=== PATIENT | female | born 1970 | race African-American/Black ===

== ENCOUNTER 2017-05-22 18:44 | Observation (INO) | payer OTHER ==
--- OUTSIDE RECORDS SUMMARY | 2017-05-22 18:47 | XMS | Clinical Summary ---
:1970 Author Organization [facility] Address [address] [place] [address] Phone Care Team Providers Name Role Phone , Primary Care Provider Unavailable Allergies Not on File Current Medications Not on file Active Problems Not on file Social History Tobacco Use Types Packs/Day Years Used Date Never Assessed Sex Assigned at Date Recorded Not on file Last Filed Vital Signs Not on file Plan of Treatment Not on file Results Not on filefrom Last 3 Months
[2017-05-22 19:34] LABS: #Basophils 0.1 thou/uL (0.0-0.2); #Eosinphils 0.1 thou/uL (0.0-0.7); #Lymphocytes 2.8 thou/uL (1.20-3.40); #Monocytes 0.9 thou/uL (0.11-0.59); #Neutrophils 7.4 thou/uL (1.40-6.50); %Basophils 0.7 % (0.0-1.0); %Eosinophils 0.6 % (0.0-10.0); %Lymphocytes 24.8 % (21.0-51.0); %Monocytes 7.6 % (0.0-10.0); Mean Platelet Volume 7.4 fL (7.4-10.4); Red Blood Cell (RBC) Count 4.73 mill/uL (4.20-5.40); White Blood Cell (WBC) Count 11.2 thou/uL (4.8-10.8)
[2017-05-22] MEDS ORDERED: Nitroglycerin 2% Ointment 1 INCH/1 GM Packet ONE (19:35)
[2017-05-22 20:00] LABS: ALT (SGPT) 43 U/L (8-55); AST (SGOT) 66 U/L (5-34); Alkaline Phosphatase 76 U/L (40-150); Anion Gap 10 mmol/L (10-20); BUN (Urea Nitrogen) 7 mg/dL (7.0-18.7); Bilirubin, Total 0.5 mg/dL (0.2-1.2); CK (CPK) 1600 U/L (29-168); Calc. Creatinine Clearance 0 mL/min (70-130); Calcium 10.2 mg/dL (7.8-10.44); Carbon Dioxide 30 mmol/L (22-29); Chloride 104 mmol/L (98-107); Estimated GFR-MDRD Greater than 90; Globulin 2.6 g/dL (2.4-3.5); Lipase 11 U/L (8-78); Protein, Total 6.5 g/dL (6.0-8.3)
[2017-05-22 20:03] LABS: Troponin I 0.012 ng/mL (< 0.028)
--- NOTE | 2017-05-22 20:23 | RAD ---
UPRIGHT PORTABLE CHEST ONE VIEW: 05/22/17 HISTORY: 47-year-old female with chest pain. COMPARISON: 01/19/14. Monitor leads overlie the chest. Heart size is borderline. No confluent pneumonia, overt edema or pl eural effusion. IMPRESSION: Borderline sized heart. No acute process. Stable from prior study. POS: [facility]
[2017-05-22] MEDS ORDERED: Acetaminophen 500 MG TAB ONE (20:37)
[2017-05-22] MEDS ORDERED: Ondansetron HCl/PF 4 MG/2 ML Vial IVP PRN (22:25)
[2017-05-22] MEDS ORDERED: Ondansetron ODT 4 MG TAB SL PRN (22:25)
[2017-05-22] MEDS ORDERED: Acetaminophen 325 MG TAB PO PRN (22:25)
[2017-05-22] MEDS ORDERED: Nitroglycerin 2% Ointment 1 INCH/1 GM Packet TOP SCH (22:30)
[2017-05-22 22:32] VITALS: BMI 43.4
[2017-05-22 22:38] LABS: Troponin I Less than 0.010 ng/mL (< 0.028)
[2017-05-22] MEDS ORDERED: Aspirin 325 MG TAB PO SCH (23:00)
[2017-05-22] MEDS: Sodium Chloride 0.9% 1,000 ML IV SCH (23:15)
[2017-05-23 02:01] LABS: Troponin I 0.017 ng/mL (< 0.028)
[2017-05-23] MEDS ORDERED: traMADol HCl 50 MG TAB PO PRN (03:30)
[2017-05-23] MEDS ORDERED: Ondansetron ODT 4 MG TAB PO PRN ×2 (05:45)
[2017-05-23] MEDS ORDERED: Ondansetron HCl/PF 4 MG/2 ML Vial IVP PRN ×2 (05:45)
[2017-05-23] MEDS ORDERED: Lorazepam 1 MG TAB PO PRN (05:45)
[2017-05-23] MEDS ORDERED: Acetaminophen 325 MG TAB PO PRN (05:45)
[2017-05-23] MEDS: Nitroglycerin 2% Ointment 1 INCH/1 GM Packet TOP SCH ×2 (05:55→13:59)
--- NOTE | 2017-05-23 06:04 | HP ---
PRIMARY CARE PHYSICIAN: Dr. Mer Brown CHIEF COMPLAINT: Chest pain. HISTORY OF PRESENT ILLNESS: Ms. Mackenzie is a pleasant 47-year-old female that has a history of hyper tension and asthma. She also has a history of major depression and history of substance abuse in e past. She says that she was in her usual state of health until yesterday when she had a disagreem ent with a friend of hers and this caused her to become upset. She says that following that she rachel nk some alcohol because she thought this would make her feel better and she says that once she drank the beer it triggered her desire to smoke some cocaine. She says she had not used any cocaine in 6 months, but relapsed. She says that she got drunk and used some cocaine and was up all night and t hen finally fell asleep. She says that when she awoke from sleep she had a headache, felt nauseated and had a pressure-like sensation in her chest and could barely breathe. This alarmed her and she came to the emergency room for evaluation. In the ER, she was found to have an elevated CK. Howeve r, her troponin was negative and she is being placed in observation for further evaluation. Now, sh e says she only has just a very slight amount of pain and otherwise no other complaints. No nausea, no vomiting, no leg pain, etc. REVIEW OF SYSTEMS: CONSTITUTIONAL: There have been no fevers, chills, no night sweats, no weight loss. HEENT: No headaches, no dizziness, no visual changes, no sore throat, rhinorrhea, neck pain, no bárbara nopathy. PULMONARY: No hemoptysis, no cough, no wheezing. CARDIOVASCULAR: As the history of present illness. GASTROINTESTINAL: No abdominal pain, no nausea, no vomiting, no change in bowels. GENITOURINARY: No urinary frequency, hematuria, no hesitancy. NEUROLOGIC: No focal weakness, numbness, no seizures. PSYCHIATRIC: No symptoms of anxiety or depression. SKIN AND INTEGUMENT: No skin changes. No rash. PAST MEDICAL HISTORY: Significant for hypertension, asthma, osteoarthritis, and depression. PAST SURGICAL HISTORY: She has had right foot surgery from a spider bite, , cholecystectom y and 2 miscarriages that required surgical intervention. ALLERGIES: LISINOPRIL and NICOTINE. SOCIAL HISTORY: She is single, has 8 children. She smokes a half a pack of cigarettes daily for 30 years, occasionally drinks. FAMILY HISTORY: Significant for cancer in her father, colon cancer and lung cancer in her mother. MEDICATIONS: She says include hydrochlorothiazide 25 mg daily, ranitidine 150 mg daily, Zoloft 100 mg daily, tramadol 50 mg t.i.d., trazodone 100 mg at bedtime, Breo Ellipta 1 puff daily, Dexilant 60 mg daily, Bupropion XL 150 mg daily, and amlodipine 2.5 mg daily. PHYSICAL EXAMINATION: GENERAL: She is alert and oriented. She appears to be in no acute distress. VITAL SIGNS: Blood pressure was 130/83, heart rate 79, respiratory rate is 16, temperature is 98.5. HEENT: Her pupils are equal, round, and reactive. Extraocular muscles are intact. Her sclerae are anicteric. Throat no erythema, no exudates. NECK: No adenopathy, no bruits. LUNGS: Clear. There is no wheezing, no rales. CARDIOVASCULAR: She has a normal S1, S2. I did not appreciate an S3 or S4. No murmurs, clicks or rubs. ABDOMEN: Soft, it is nontender, nondistended. Positive for bowel sounds. No rebound, no guarding. EXTREMITIES: There is no edema. NEUROLOGICALLY: The exam is nonfocal. LABORATORY AND X-RAY FINDINGS: On her EKG, it is sinus rhythm, the rate is 89. She had some nonspe cific ST wave changes with some T-wave inversions in 3, as well as leads V1, V2, V3 and V4. ASSESSMENT AND PLAN: This is a 47-year-old female who presents to the emergency room with chest geneva n radiating down her left arm. It is associated with some shortness of breath. The patient admits to drinking quite a bit of alcohol and getting drunk and also using some cocaine and she said she sm oked this cocaine prior to her symptoms starting. Likely it is related to the substance abuse, but she is at risk of having underlying coronary artery disease as well. She will be monitored in telem etry. We will place her on aspirin and nitrates, avoid beta blockers given the cocaine use and get a nuclear stress test to further stratify her risks for coronary artery disease. She was counseled briefly on substance abuse. She says that she sees a psychiatrist for her depression and I encourag ed her to discuss her relapse with her psychiatrist and possible healthier coping mechanisms.
[2017-05-23 06:53] LABS: Amphetamine Not Detected (NotDetected); Methadone Not Detected (NotDetected); Methamphetamine Not Detected (NotDetected)
[2017-05-23] MEDS: Sodium Chloride 0.9% 1,000 ML IV SCH ×3 (08:36→17:21)
[2017-05-23] MEDS ORDERED: Sodium Chloride 0.9% 1,000 ML IV SCH (09:00)
[2017-05-23] MEDS ORDERED: Docusate 100 MG CAP PO SCH (09:00)
[2017-05-23] MEDS ORDERED: Enoxaparin Sodium 40 MG/0.4 ML SYRINGE SC SCH (09:00)
[2017-05-23] MEDS ORDERED: Non-Formulary Item 1 EACH (Dexlansoprazole [Dexilant] 60 MG) PO SCH (09:00)
[2017-05-23] MEDS ORDERED: FLU VACC QS2017-18 36 mo. & older 0.5 ML SYRINGE IM ONE (09:00)
[2017-05-23] MEDS ORDERED: Non-Formulary Item 1 EACH (Ranitidine Hcl [Ranitidine Hcl] 150 MG) PO SCH (09:00)
[2017-05-23] MEDS ORDERED: Non-Formulary Item 1 EACH (Fluticasone/Vilanterol [Breo Ellipta] 1 PUFF) INH SCH (09:00)
[2017-05-23] MEDS ORDERED: Aspirin 325 MG TAB PO SCH (09:00)
[2017-05-23] MEDS ORDERED: Famotidine 20 MG TAB PO SCH (09:30)
[2017-05-23] MEDS ORDERED: Bupropion 150 MG XL TAB PO SCH (09:30)
[2017-05-23 09:41] LABS: CK (CPK) 1256 U/L (29-168); Magnesium 2.3 mg/dL (1.6-2.6)
[2017-05-23] MEDS ORDERED: Regadenoson 0.4 MG/5 ML SYRINGE ONE (12:00)
[2017-05-23] MEDS ORDERED: Potassium Chloride 20 MEQ TAB PO SCH (12:45)
--- NOTE | 2017-05-23 13:10 | NM ---
RADIONUCLIDE STRESS ONLY MYOCARDIAL PERFUSION SCAN WITH CT ATTENUATION CORRECTION AND SPECT IMAGING LEFT VENTRICULAR WALL MOTION EVALUATION AND EJECTION FRACTION: HISTORY: Chest pain. RADIONUCLIDE STRESS/REST MYOCARDIAL PERFUSION SCAN, 09/16/12: RADIOPHARMACEUTICAL: 33.0 mCi Technetium 99m sestamibi for stress exam; 11.0 mCi Technetium 99m sestamibi for rest exam. FINDINGS: There is heterogeneous uptake of radiotracer throughout the left ventricular myocardium. No focal p erfusion defect is evident. QGS analysis of gated SPECT images shows no focal wall motion abnormalities. Left ventricular eject ion fraction is calculated at 79%. LexiScan protocol was used. IMPRESSION: Normal stress-only myocardial perfusion scan. Normal left ventricular ejection fraction. POS: [facility]
--- NOTE | 2017-05-23 13:51 | PDOC.EVN ---
Event Note - Event Note Event Note: Pt seen and examined. admitted earlier today for chest pain,HTN,Rhabdomyolysis after abusing cocaine. Chart and labs reviewed. feels better.No more chest pain. labs reviewed. CPK improving. NM stress test without any ischemia .NL EF. plan-Will increase IVf for now and recheck CPK at 1700hrs. If still trending down, will DC home . encourage hydration and cocaine/alcohal abstinence.
[2017-05-23 15:45] VITALS: BP 144/80; TEMP 98.7
[2017-05-23] MEDS ORDERED: Mometasone/Formoterol 120 PUFF INHALER INH SCH (18:30)
[2017-05-23] MEDS ORDERED: traZODone HCl 50 MG TAB PO SCH (21:00)
[2017-05-23] MEDS ORDERED: Non-Formulary Item 1 EACH (Trazodone [Trazodone] 100 MG) PO SCH (21:00)
--- NOTE | 2017-05-24 02:12 | DIS ---
DATE OF ADMISSION: 05/22/2017 DATE OF DISCHARGE: 05/23/2017 PRIMARY CARE PHYSICIAN: Mer Brown D.O. CONDITION AT THE TIME OF DISCHARGE: Stable and improved. DISCHARGE DIAGNOSES: 1. Cocaine abuse. 2. Chest pain secondary to cocaine abuse. 3. Rhabdomyolysis. 4. History of essential hypertension. 5. History of asthma. 6. Osteoarthritis. 7. Depression. DISCHARGE MEDICATIONS: Remain the same as admission medication. Please see admission history and p [facility] for the complete list. PROCEDURES DONE IN THE HOSPITAL: Nuclear medicine stress test, which is negative for any reversible or fixed ischemia and the estimated ejection fraction is 79%. ADMISSION HISTORY: Ms. Mackenzie is a 47-year-old -O[place] female with history of hypertension and cocaine abuse and depression, who presented to the ER with complaints of chest pain. She had c ardiac workup done initially in the ER, which was negative including negative troponin and EKG. She did have elevated CPK at 1600 and was admitted with a presumptive diagnosis of rhabdomyolysis and A CS rule out. HOSPITAL COURSE: The patient underwent cardiac stress testing to rule out acute coronary syndrome a nd it is negative for the same. Her cardiac biomarkers remained negative. Her CK trended down from 1600-950. Rest of her hospitalization was unremarkable. She had low potassium, which was suppleme nted prior to discharge. The patient is instructed to stay hydrated over the course of next few days and follow up with her [facility] physician with outpatient recheck of her CPK. She was also counseled extensively about cocaine abstinence and alcohol abstinence. At this time, she verbalized understanding. She was see n and examined prior to discharge. PHYSICAL EXAMINATION: VITAL SIGNS: Temperature 98.7, pulse of 83, respirations 24, saturating 99% on room air, blood pres sure 144/80. GENERAL: No acute distress, awake, alert, oriented x3. CHEST: Clear to auscultation without any wheezing, rales or rhonchi. Rate and rhythm is regular wi thout any murmur, rubs or gallops. ABDOMEN: Soft, nontender, nondistended with positive bowel sounds. LABORATORY DATA: Troponin less than 0.010, then 0.017. CK 1600, trending down to 950. Potassium u lizette presentation was 3.3. Lipid panel showed total cholesterol of 178, triglycerides 200, lipase is normal, CBC showed WBCs at 11. Urine toxicology screen positive for cocaine. Chest x-ray upon pre sentation had no effusion, edema or infiltrate. The patient will be discharged back home in a stable condition. She is currently hemodynamically st able and asymptomatic.
[2017-05-24] MEDS ORDERED: Famotidine 20 MG TAB PO SCH (09:00)
[2017-05-24] MEDS ORDERED: Bupropion 150 MG XL TAB PO SCH (09:00)
== END 2017-05-23 19:45 | disposition home or self-care (01) ==
LOC: ERS 18:44 → 2SW 20:53
PROVIDERS: ADMIT Internal Medicine Infectious Disease; ATTEND Internal Medicine Infectious Disease
DX: F14.188 Cocaine abuse with other cocaine-induced disorder (principal); R07.9 Chest pain, unspecified; M62.82 Rhabdomyolysis; I10 Essential (primary) hypertension; J45.909 Unspecified asthma, uncomplicated; M19.90 Unspecified osteoarthritis, unspecified site; F32.9 Major depressive disorder, single episode, unspecified; R74.8 Abnormal levels of other serum enzymes; F17.210 Nicotine dependence, cigarettes, uncomplicated; Z79.51 Long term (current) use of inhaled steroids; Z79.899 Other long term (current) drug therapy; Z88.8 Allergy status to other drugs, medicaments and biological substances; Z90.49 Acquired absence of other specified parts of digestive tract; Z98.890 Other specified postprocedural states; Z80.0 Family history of malignant neoplasm of digestive organs; Z80.1 Family history of malignant neoplasm of trachea, bronchus and lung
CPT/HCPCS: 36415; 71010; 78452; 80053; 80061; 80306; 82550; 82553; 83690; 83735; 84132; 84484; 85025; 90471; 90682; 90732; 93005; 93017; 94664; 96360; 96361; 96372; A9500; G0008; G0009; G0378; J1650; J2785; Q2036

== ENCOUNTER 2017-09-21 16:52 | Emergency (ER) | payer OTHER ==
[~2017-09-21 16:52] MED LIST: ISOVUE-370 76%-LOCM 1 ML ONE
[2017-09-21 17:44] LABS: #Eosinphils 0.2 thou/uL (0.0-0.7); #Lymphocytes 2.2 thou/uL (1.20-3.40); #Monocytes 0.5 thou/uL (0.11-0.59); #Neutrophils 4.9 thou/uL (1.40-6.50); %Lymphocytes 28.5 % (21.0-51.0); %Monocytes 5.9 % (0.0-10.0); %Neutrophils 63.6 % (42.0-75.0); Hemoglobin 14.7 g/dL (12.0-16.0); Mean Corpuscular HGB CONC 35.6 g/dL (32.0-36.0); Mean Corpuscular Hemoglobin 31.3 pg (27.0-31.0); Mean Corpuscular Volume 87.8 fl (81.0-99.0); Mean Platelet Volume 7.5 fL (7.4-10.4); Platelet Count 270 thou/uL (130-400); RBC Distribution Width 12.3 % (11.5-14.5); Red Blood Cell (RBC) Count 4.69 mill/uL (4.20-5.40); White Blood Cell (WBC) Count 7.7 thou/uL (4.8-10.8)
[2017-09-21] MEDS ORDERED: traMADol HCl 50 MG TAB ONE (17:47)
[2017-09-21 18:05] LABS: ALT (SGPT) 18 U/L (8-55); AST (SGOT) 17 U/L (5-34); Albumin 3.9 g/dL (3.5-5.0); Alkaline Phosphatase 91 U/L (40-150); Anion Gap 12 mmol/L (10-20); BUN (Urea Nitrogen) 7 mg/dL (7.0-18.7); Bilirubin, Total 0.2 mg/dL (0.2-1.2); Calc. Creatinine Clearance 0 mL/min (70-130); Calcium 9.8 mg/dL (7.8-10.44); Carbon Dioxide 28 mmol/L (22-29); Chloride 102 mmol/L (98-107); Estimated GFR-MDRD Greater than 90; Globulin 2.6 g/dL (2.4-3.5); Glucose 127 mg/dL (70-105); Lipase 27 U/L (8-78); Potassium 3.3 mmol/L (3.5-5.1); Protein, Total 6.5 g/dL (6.0-8.3); Sodium 139 mmol/L (136-145)
[2017-09-21 18:10] LABS: Bilirubin Negative (Negative); Blood, Urine Negative (Negative); Clarity CLEAR (Clear); Glucose, Urine (Dipstick) Negative (Negative); Leukocyte Negative (Negative); Nitrite Negative (Negative); Protein, Urine (Dipstick) Negative (Neg-Trace); Specific Gravity, Urine 1.011 (1.002-1.036); Urobilinogen 0.2 mg/dL (0.2-1.0); pH, Urine 6.5 (5.0-9.0)
--- NOTE | 2017-09-21 18:33 | CT ---
CT OF THE ABDOMEN AND PELVIS WITH CONTRAST 09/21/17 COMPARISON: 09/09/17 HISTORY: Right sided abdominal pain for one week and dizziness. TECHNIQUE: Multiple contiguous axial images were obtained in a CT of the abdomen and pelvis with contrast. Coron al reformats were performed. FINDINGS: The patient is status post cholecystectomy. The liver, kidneys, adrenal glands, spleen, and pancreas are unremarkable. No free air, free fluid or stranding changes are seen in the abdomen or pelvis. The uterus is prominent along the fundus which could be secondary to the fundal fibroid. The large an d small bowel are unremarkable. The appendix is unremarkable. No abdominal or pelvic lymphadenopathy are seen. The osseous structures, visualized inferior thorax are unremarkable. There is a 2.8 cm fat containing umbilical hernia which remains stable. IMPRESSION: 1. No evidence of acute intra-abdominal/pelvic abnormality. 2. Possible uterine fibroid. 3. Stable fat containing umbilical hernia. POS: [facility]
[2017-09-21] MEDS ORDERED: HYDROcodone/Acetaminophen 5/325 mg Tablet ONE (18:59)
[2017-09-21] MEDS ORDERED: Dexamethasone 4 mg/ml Vial ONE (19:45)
[2017-09-21] MEDS ORDERED: Potassium Chloride 20 MEQ TAB ONE (19:45)
== END 2017-09-21 19:55 | disposition home or self-care (01) ==
LOC: ERS 16:52
DX: K42.9 Umbilical hernia without obstruction or gangrene (principal); I10 Essential (primary) hypertension; M19.90 Unspecified osteoarthritis, unspecified site; K21.9 Gastro-esophageal reflux disease without esophagitis; J45.909 Unspecified asthma, uncomplicated; F41.9 Anxiety disorder, unspecified; F32.9 Major depressive disorder, single episode, unspecified; F17.210 Nicotine dependence, cigarettes, uncomplicated
CPT/HCPCS: 36415; 74177; 80053; 81003; 83690; 85025; J1100

== ENCOUNTER 2017-10-23 12:39 | Outpatient (CLI) | payer OTHER ==
[2017-10-23 14:31] LABS: BHCG - Serum Negative (NEGATIVE); Pregs Control Background? CLEAR/WHITE (CLR/WHITE); Pregs Control Bar Appear? YES (CONTROL BAR)
--- NOTE | 2017-10-24 17:43 | EKG ---
Test Reason : Blood Pressure : / mmHG Vent. Rate : 091 BPM Atrial Rate : 091 BPM P-R Int : 178 ms QRS Dur : 082 ms QT Int : 380 ms P-R-T Axes : 057 074 003 degrees QTc Int : 467 ms Normal sinus rhythm Low voltage QRS Nonspecific T wave abnormality Prolonged QT Abnormal ECG Confirmed by DR. Norm DIMAS ([id number]) on 10/24/2017 5:42:48 PM Referred By: KYLE Confirmed By:DR. Norm DIMAS
== END 2017-10-23 12:40 | disposition home or self-care (01) ==
LOC: LABBT 12:39
PROVIDERS: ATTEND Specialist
DX: Z01.810 Encounter for preprocedural cardiovascular examination (principal); K42.9 Umbilical hernia without obstruction or gangrene; D17.1 Benign lipomatous neoplasm of skin and subcutaneous tissue of trunk
CPT/HCPCS: 84703; 93005; 93010

== ENCOUNTER 2017-10-25 07:32 | Day surgery (SDC) | payer OTHER ==
--- NOTE | 2017-10-18 11:31 | HP ---
HISTORY OF PRESENT ILLNESS: Monica Mackenzie is a 47-year-old morbidly obese white female, 224 pound s, 59 inches, 44 BMI presents with a painful incarcerated umbilical hernia and a lipoma, 3 cm right upper quadrant that is bothersome to her. She recently began having problems in her right flank and has taken anti-inflammatories which helps. She presented to the emergency room recently with the abo ve complaints and CAT scan of abdomen and pelvis was obtained and was unremarkable and laboratories, CBC and comp met obtained were unremarkable. I have performed a laparoscopic cholecystectomy in the past. The patient is morbidly obese with teresa rbidities of arthralgias, arthritis, symptoms of sleep apnea, although she has never had a sleep stud y, GERD, she has had chronic cervical spine pain, has had injections for that. She is followed by [facility] and is referred by Dr. Félix Fisher. MEDICATIONS: Hydrochlorothiazide 25 mg a day, tramadol p.r.n. pain, Toradol p.r.n. pain, ranitidine 75 mg twice a day. She takes a bottle of Tums every two days for her reflux, Zoloft 200 mg daily, am lodipine besylate once a day, inhaler 1 puff daily, Breo Ellipta. PAST MEDICAL HISTORY: Cervical spinal stenosis, mild right C3-[address] Proctor with injections 05/07/2012, history of asthma and tobacco use, history of depression, hypertension. STDs treated IM antibiotics, lumbar radiculopathy in the past, Meniere's disease, GERD, takes Zantac twice a da y and takes a bottle of Tums every 2-3 days, rheumatoid arthritis, anxiety, symptoms of sleep apnea, although never having a sleep study. She is single. She lives with her children. They tell her mendoza t she snores and has been respiratory pauses at night, arthralgias, DJD. PAST SURGICAL HISTORY: Cholecystectomy that I performed. Bilateral tubal ligation, x2. C -spine injections right foot, infection from a brown recluse spider bite. ALLERGIES: None. SOCIAL HISTORY: Tobacco 1/2 pack per day. ALCOHOL: None. PHYSICAL EXAMINATION: VITAL SIGNS: Weight 224 pounds, 59 inches, 44 BMI, 147/94, 92, 98 degrees. HEENT: Unremarkable. LUNGS: Clear to auscultation. CARDIAC: Regular rate and rhythm without murmur or gallop. ABDOMEN: Soft, obese, protuberant pannus. Umbilical hernia, incarcerated tender within probably inc arcerated fat, lipoma 3 cm diameter, mobile right upper quadrant beneath the mid clavicular scar from laparoscopic cholecystectomy at least 3 fingerbreadths below that. EXTREMITIES: Unremarkable. No ankle edema. ASSESSMENT AND PLAN: 1. Lipoma, right upper quadrant abdominal wall 3 cm. Plan excision. There is no evidence that this is a hernia, examined standing with Valsalva. 2. Umbilical hernia, incarcerated painful. This probably has incarcerated fat due to her morbid obe sity. We will plan laparoscopic probably transabdominal preperitoneal mesh repair. Risks and benefi ts explained, she consents. 3. Morbid obesity/metabolic syndrome. BMI 44. 4. Symptoms of sleep apnea with a sleep study. 5. Gastroesophageal reflux disease, on H2 blockers and Tums. 6. Arthralgias. 7. Arthritis. 8. Cervical spine chronic pain. 9. Radiculopathy, lumbar history. NOTE: The patient is a good bariatric candidate and with her Medicaid status she will probably need a supervised weight loss. She will attend our bariatric seminar tonight. It was emphasized that she will need tobacco cessation.
[2017-10-23 13:07] VITALS: BMI 44.2
[2017-10-25] MEDS ORDERED: CEFAZOLIN/Water 2 GM/20 ML SYRINGE ONE (07:58)
[2017-10-25] MEDS ORDERED: Ketorolac Tromethamine 30 MG/ML VIAL ONE (07:58)
[2017-10-25] MEDS ORDERED: Bupivacaine/Epinephrine 0.25% 30 ML VIAL ONE ×2 (09:44→10:38)
[2017-10-25] MEDS ORDERED: Fentanyl 250 MCG/5 ML VIAL ONE ×2 (09:45→11:50)
[2017-10-25] MEDS ORDERED: Midazolam HCl 2 mg/2 ml Vial ONE (10:00)
--- NOTE | 2017-10-25 12:07 | OP ---
DATE OF PROCEDURE: 10/25/2017 PREOPERATIVE DIAGNOSES: Umbilical hernia, morbid obesity, lipoma right upper quadrant abdominal wall 2.5 cm defect. Adhesions from prior surgery. POSTOPERATIVE DIAGNOSES: Umbilical hernia, morbid obesity, lipoma right upper quadrant abdominal wal l 2.5 cm defect. Adhesions from prior surgery. PROCEDURE: Laparoscopic adhesiolysis. Omentum adhesed to the anterior abdominal wall (previous C-se ctions) laparoscopic fascial closure using 0 Ethibond GraNee needle. Laparoscopic 11 cm round mesh c losure. Ventralight ST with secure strap and transabdominal fascial fixation 4 quadrant 0 Ethibond. Excision of lipoma, right upper quadrant, right subcostal 3 cm incision 3 cm lipoma. SURGEON: Dr. Aamir Blanchard ANESTHESIA: General. Local 0.25% Marcaine with epinephrine, 60 mL. ESTIMATED BLOOD LOSS: None. BLOOD TRANSFUSED: None. PROCEDURE: The patient was taken to the operating room where under general anesthesia, abdomen was p repared with ChloraPrep, draped in routine fashion. Left lateral subcostal incision made and pneumop eritoneum to 15 mmHg obtained with the Veress needle placed and a 5 port and laparoscope inserted. T here were adhesions around the umbilicus inferiorly from prior surgery. There was an umbilical herni a defect visualized. It was about 2.5 cm in diameter. There was incarcerated omentum. Left lateral mid abdominal incision made and an 11 port placed. Left lower quadrant incision made and a 5 port p laced. Adhesiolysis carried out, taking omentum down from the anterior abdominal wall, freeing the p eriumbilical area. The pneumoperitoneum was reduced to 8 mmHg and a GraNee needle with 0 Ethibond us ed to close the incisional hernia defect with 2 interrupted sutures of 0 Ethibond. Mesh was then rol led and placed against the abdominal wall and a single secure TAC placed over the mesh centrally in t he area of the umbilicus. Pneumoperitoneum had been reduced to 8 mmHg. Mesh was secured circumferen tially with a secure tacking and in 4 quadrants a transabdominal fixation 0 Ethibond GraNee needle. Mesh was taut and had a good position. Good hemostasis noted. Pneumoperitoneum reduced. All instru ments removed and all skin incisions approximated with subdermal 4-0 Monocryl and DermaGlue applied. The patient had a lipoma, right upper quadrant, right subcostal, incisions made 3 cm, carried down de oliveira bcutaneous tissue and lipoma dissected free, submitted to pathology. Hemostasis gained with cautery. Subcutaneous tissues approximated with 3-0 Monocryl, skin with subdermal 4-0 Monocryl and DermaGlue applied.
[2017-10-25] MEDS ORDERED: HYDROcodone/Acetaminophen 5/325 mg Tablet ONE (12:16)
== END 2017-10-25 13:20 | disposition home or self-care (01) ==
LOC: SDC 07:32
PROVIDERS: ATTEND Specialist
PROC: 0WUF4JZ Supplement Abdominal Wall with Synthetic Substitute, Percutaneous Endoscopic Approach (ICD-10-PCS; principal; 2017-10-25)
PROC: 0JB80ZZ Excision of Abdomen Subcutaneous Tissue and Fascia, Open Approach (ICD-10-PCS; principal; 2017-10-25)
DX: D17.1 Benign lipomatous neoplasm of skin and subcutaneous tissue of trunk (principal); K42.9 Umbilical hernia without obstruction or gangrene; K66.0 Peritoneal adhesions (postprocedural) (postinfection); I10 Essential (primary) hypertension; H81.09 Meniere's disease, unspecified ear; K21.9 Gastro-esophageal reflux disease without esophagitis; M06.9 Rheumatoid arthritis, unspecified; J45.909 Unspecified asthma, uncomplicated; M17.11 Unilateral primary osteoarthritis, right knee; E78.00 Pure hypercholesterolemia, unspecified; F32.9 Major depressive disorder, single episode, unspecified; F41.9 Anxiety disorder, unspecified; F17.210 Nicotine dependence, cigarettes, uncomplicated; E66.01 Morbid (severe) obesity due to excess calories; Z68.41 Body mass index [BMI] 40.0-44.9, adult; Z88.8 Allergy status to other drugs, medicaments and biological substances; Z98.890 Other specified postprocedural states; Z98.891 History of uterine scar from previous surgery
CPT/HCPCS: 88304; 96374; C1781; J0131; J1885; J2250; J3010

== ENCOUNTER 2018-08-28 11:20 | Emergency (ER) | payer OTHER ==
--- NOTE | 2018-08-28 14:17 | RAD ---
TWO VIEW CHEST: INDICATION: Cough. FINDINGS: Lung cisneros are clear. No infiltrate. Heart and mediastinum unremarkable. IMPRESSION: No acute findings. POS: [facility]
== END 2018-08-28 14:43 | disposition home or self-care (01) ==
LOC: ERS 11:20
DX: J06.9 Acute upper respiratory infection, unspecified (principal); I10 Essential (primary) hypertension; K21.9 Gastro-esophageal reflux disease without esophagitis; J45.909 Unspecified asthma, uncomplicated; M19.90 Unspecified osteoarthritis, unspecified site; F32.9 Major depressive disorder, single episode, unspecified; F41.9 Anxiety disorder, unspecified; F17.210 Nicotine dependence, cigarettes, uncomplicated; Z79.899 Other long term (current) drug therapy; Z79.891 Long term (current) use of opiate analgesic
CPT/HCPCS: 71046; 87804

== ENCOUNTER 2018-12-15 11:14 | Emergency (ER) | payer OTHER ==
[2018-12-15] MEDS ORDERED: Ketorolac Tromethamine 30 MG/ML VIAL ONE (12:41)
--- NOTE | 2018-12-15 12:48 | RAD ---
XR Chest Pa Lat STANDARD HISTORY: Chest pain, left arm pain COMPARISON: None FINDINGS: The heart size is normal. The lungs are well expanded without focal areas of consolidation, pneumothorax or pleural effusions. There are degenerative changes in the spine. IMPRESSION: No radiographic evidence of acute cardiopulmonary process.
[2018-12-15 13:05] LABS: #Basophils 0.1 thou/uL (0.0-0.2); #Eosinphils 0.2 thou/uL (0.0-0.7); #Lymphocytes 2.1 thou/uL (1.20-3.40); #Monocytes 0.7 thou/uL (0.11-0.59); #Neutrophils 6.3 thou/uL (1.40-6.50); %Basophils 0.8 % (0.0-1.0); %Eosinophils 1.7 % (0.0-10.0); %Lymphocytes 22.4 % (21.0-51.0); %Monocytes 7.7 % (0.0-10.0); %Neutrophils 67.4 % (42.0-75.0); Hemoglobin 16.4 g/dL (12.0-16.0); Mean Corpuscular HGB CONC 34.7 g/dL (32.0-36.0); Mean Corpuscular Hemoglobin 30.6 pg (27.0-31.0); Mean Corpuscular Volume 88.2 fL (78.0-98.0); Platelet Count 309 thou/uL (130-400); RBC Distribution Width 12.1 % (11.5-14.5); Red Blood Cell (RBC) Count 5.38 mill/uL (4.20-5.40); White Blood Cell (WBC) Count 9.3 thou/uL (4.8-10.8)
[2018-12-15 13:26] LABS: ALT (SGPT) 29 U/L (8-55); AST (SGOT) 22 U/L (5-34); Albumin 4.3 g/dL (3.5-5.0); Alkaline Phosphatase 88 U/L (40-150); Anion Gap 9 mmol/L (10-20); BUN (Urea Nitrogen) 9 mg/dL (7.0-18.7); Bilirubin, Total 0.3 mg/dL (0.2-1.2); Calc. Creatinine Clearance 0 mL/min (70-130); Calcium 10.9 mg/dL (7.8-10.44); Carbon Dioxide 30 mmol/L (22-29); Chloride 104 mmol/L (98-107); Estimated GFR-MDRD Greater than 90; Globulin 2.5 g/dL (2.4-3.5); Glucose 83 mg/dL (70-105); Potassium 3.6 mmol/L (3.5-5.1); Protein, Total 6.8 g/dL (6.0-8.3); Sodium 139 mmol/L (136-145)
[2018-12-15 14:01] LABS: Bilirubin Negative (Negative); Blood, Urine Negative (Negative); Clarity CLEAR (Clear); Glucose, Urine (Dipstick) Negative (Negative); Leukocyte Negative (Negative); Nitrite Negative (Negative); Protein, Urine (Dipstick) Negative (Neg-Trace); Specific Gravity, Urine 1.008 (1.002-1.036); Urobilinogen 0.2 mg/dL (0.2-1.0)
== END 2018-12-15 14:09 | disposition home or self-care (01) ==
LOC: ERS 11:14
DX: M79.622 Pain in left upper arm (principal); F19.10 Other psychoactive substance abuse, uncomplicated; M19.90 Unspecified osteoarthritis, unspecified site; K21.9 Gastro-esophageal reflux disease without esophagitis; J45.909 Unspecified asthma, uncomplicated; I10 Essential (primary) hypertension; F41.9 Anxiety disorder, unspecified; F32.9 Major depressive disorder, single episode, unspecified; F17.210 Nicotine dependence, cigarettes, uncomplicated; Z79.891 Long term (current) use of opiate analgesic; Z79.899 Other long term (current) drug therapy
CPT/HCPCS: 71046; 80053; 81003; 84484; 85025; 93005; 96374; J1885

== ENCOUNTER 2020-06-22 18:37 | Emergency (ER) | payer OTHER ==
[2020-06-22 20:02] LABS: Bilirubin Negative (Negative); Blood, Urine Trace (Negative); Glucose, Urine (Dipstick) Negative (Negative); Ketone, Urine Negative (Negative); Leukocyte Negative (Negative); Nitrite Negative (Negative); Protein, Urine (Dipstick) Negative (Neg-Trace); Specific Gravity, Urine 1.025 (1.005-1.030); Urobilinogen 0.2 mg/dL (Less than 2)
[2020-06-22 20:04] LABS: Clarity Clear (Clear)
[2020-06-22] MEDS ORDERED: Morphine 4 MG/ML VIAL ONE (20:36)
[2020-06-22] MEDS ORDERED: Ondansetron PF 4 MG/2 ML Vial ONE (20:37)
[2020-06-22] MEDS ORDERED: Ketorolac Tromethamine 30 MG/ML VIAL ONE (20:37)
[2020-06-22 20:47] LABS: #Basophils 0.1 thou/uL (0.0-0.2); #Eosinphils 0.1 thou/uL (0.0-0.7); #Lymphocytes 2.4 thou/uL (1.20-3.40); #Monocytes 0.5 thou/uL (0.11-0.59); #Neutrophils 4.2 thou/uL (1.40-6.50); %Basophils 0.7 % (0.0-1.0); %Eosinophils 1.4 % (0.0-10.0); %Lymphocytes 33.3 % (21.0-51.0); %Monocytes 6.8 % (0.0-10.0); %Neutrophils 57.9 % (42.0-75.0); Hemoglobin 16.2 g/dL (12.0-16.0); Mean Corpuscular HGB CONC 36.3 g/dL (32.0-36.0); Mean Corpuscular Hemoglobin 32.5 pg (27.0-31.0); Mean Corpuscular Volume 89.7 fL (78.0-98.0); Platelet Count 276 thou/uL (130-400); RBC Distribution Width 12.8 % (11.5-14.5); Red Blood Cell (RBC) Count 4.98 mill/uL (4.20-5.40); White Blood Cell (WBC) Count 7.3 thou/uL (4.8-10.8)
[2020-06-22 21:08] LABS: ALT (SGPT) 13 U/L (8-55); AST (SGOT) 14 U/L (5-34); Alkaline Phosphatase 102 U/L (40-110); Anion Gap 12 mmol/L (10-20); BUN (Urea Nitrogen) 13 mg/dL (7.0-18.7); Bilirubin, Total 0.3 mg/dL (0.2-1.2); Calc. Creatinine Clearance 0 mL/min (70-130); Calcium 10.8 mg/dL (7.8-10.44); Carbon Dioxide 24 mmol/L (22-29); Chloride 108 mmol/L (98-107); Estimated GFR-MDRD 86; Globulin 2.8 g/dL (2.4-3.5); Glucose 96 mg/dL (70-105); Protein, Total 6.8 g/dL (6.0-8.3); Sodium 140 mmol/L (136-145)
[2020-06-22 21:11] LABS: BHCG - Serum Negative (NEGATIVE); Pregs Control Background? CLEAR/WHITE (CLR/WHITE); Pregs Control Bar Appear? YES (CONTROL BAR)
--- NOTE | 2020-06-22 21:33 | CT ---
CT Abdomen Pelvis WO Con 06/22/2020 9:03 PM HISTORY: Right flank pain and hematuria. COMPARISON: 02/01/2020 Technique: Multiple contiguous axial CT images are obtained through the abdomen and pelvis without IV contrast. Coronal reformats are provided. FINDINGS: This examination is limited for the evaluation of solid organs and vascular structures due to the lac k of intravenous contrast. Lower Chest: Lung bases are clear. Liver: Enlarged in craniocaudal dimensions measuring 19.6 cm. This may be attributable to patient bod y habitus. Gallbladder: Surgically absent. Pancreas: Grossly normal nonenhanced CT appearance. Spleen: Grossly normal nonenhanced CT appearance. Adrenals: Mild symmetric thickening of each adrenal gland which is a stable finding. Kidneys, ureters, urinary bladder: An approximately 2 mm nonobstructing superior pole left renal calc ulus is present. No right renal calculus is seen, and there are no ureteral calculi visualized bilaterally. There is no evidence of hydronephrosis. A subcentimeter too small to characterize hypodense lesion is seen in the midportion left kidney whic h is stable in size compared to prior contrasted study on 02/01/2020 and likely represents a small cyst. Incompletely distended but grossly normal in appearance. Reproductive Organs: Uterus is mildly lobulated appearance, this is stable when compared to the prior contrasted CT examination. Lymph Nodes: No enlarged lymph nodes. Bowel: Small to moderate amount of retained fecal material is seen throughout the colon. Loops of sma ll bowel are normal in caliber. Appendix: The appendix is normal in caliber. Peritoneum: No free fluid, free air, or fluid collection. Retroperitoneum: within normal limits. Vessels: Minimal vascular calcifications identified.. Abdominal Wall: within normal limits. Bones: Prominent degenerative changes in the lower thoracic spine also noted on prior study. Bilatera l sacroiliac joint osteoarthritis is present. IMPRESSION: 1. Nonobstructing approximately 2 mm calculus superior pole left kidney. No additional renal or urete ral calculi are seen bilaterally, and there is no hydronephrosis. 2. Left renal cyst. 3. Small to moderate amount of retained fecal material seen throughout the colon. 4. Cholecystectomy.
== END 2020-06-22 22:31 | disposition home or self-care (01) ==
LOC: ERS 18:37
DX: R10.9 Unspecified abdominal pain (principal); K21.9 Gastro-esophageal reflux disease without esophagitis; I10 Essential (primary) hypertension; M19.90 Unspecified osteoarthritis, unspecified site; F32.9 Major depressive disorder, single episode, unspecified; F41.9 Anxiety disorder, unspecified; F17.210 Nicotine dependence, cigarettes, uncomplicated; Z79.899 Other long term (current) drug therapy
CPT/HCPCS: 36415; 74176; 80053; 81003; 84703; 85025; 96374; 96375; J1885; J2270; J2405

== ENCOUNTER 2020-09-24 13:03 | Emergency (ER) | payer OTHER ==
[2020-09-24] MEDS ORDERED: Ketorolac Tromethamine 30 MG/ML VIAL ONE (13:20)
[2020-09-24] MEDS ORDERED: Morphine 4 MG/ML VIAL ONE (13:20)
[2020-09-24 13:46] LABS: #Basophils 0.1 thou/uL (0.0-0.2); #Eosinphils 0.1 thou/uL (0.0-0.7); #Lymphocytes 2.2 thou/uL (1.20-3.40); #Monocytes 0.5 thou/uL (0.11-0.59); #Neutrophils 6.2 thou/uL (1.40-6.50); %Basophils 0.6 % (0.0-1.0); %Eosinophils 1.4 % (0.0-10.0); %Lymphocytes 24.1 % (21.0-51.0); %Monocytes 5.9 % (0.0-10.0); %Neutrophils 68.1 % (42.0-75.0); Hemoglobin 15.9 g/dL (12.0-16.0); Mean Corpuscular HGB CONC 34.4 g/dL (32.0-36.0); Mean Corpuscular Hemoglobin 30.4 pg (27.0-31.0); Mean Corpuscular Volume 88.5 fL (78.0-98.0); Mean Platelet Volume 7.5 fL (7.4-10.4); Platelet Count 252 thou/uL (130-400); RBC Distribution Width 12.8 % (11.5-14.5); Red Blood Cell (RBC) Count 5.22 mill/uL (4.20-5.40); White Blood Cell (WBC) Count 9.1 thou/uL (4.8-10.8)
--- NOTE | 2020-09-24 14:02 | RAD ---
Chest AP view INDICATION: Chest pain COMPARISON: July 26, 2020 FINDINGS: Lungs: The lungs are clear Cardiac silhouette: The cardiomediastinal silhouette appears within normal limits. Pulmonary vasculature: Normal Pleural spaces: No pleural effusion or pneumothorax is demonstrated. Upper abdomen: No abnormality seen. Osseous structures: No acute osseous abnormality. Additional findings: None. IMPRESSION: No acute cardiopulmonary abnormality.
[2020-09-24 14:08] LABS: ALT (SGPT) 16 U/L (8-55); AST (SGOT) 17 U/L (5-34); Albumin 3.8 g/dL (3.5-5.0); Alkaline Phosphatase 77 U/L (40-110); Anion Gap 14 mmol/L (10-20); BUN (Urea Nitrogen) 14 mg/dL (7.0-18.7); Bilirubin, Total 0.2 mg/dL (0.2-1.2); Calc. Creatinine Clearance 0 mL/min (70-130); Carbon Dioxide 26 mmol/L (22-29); Chloride 106 mmol/L (98-107); Globulin 2.3 g/dL (2.4-3.5); Glucose 96 mg/dL (70-105); Potassium 4.5 mmol/L (3.5-5.1); Protein, Total 6.1 g/dL (6.0-8.3); Sodium 141 mmol/L (136-145)
[2020-09-24 17:55] LABS: SARS-CoV-2 PCR by NAA Not Detected (NotDetected)
== END 2020-09-24 16:19 | disposition home or self-care (01) ==
LOC: ERS 13:03
DX: R51.9 Headache, unspecified (principal); R68.83 Chills (without fever); M79.602 Pain in left arm; M79.10 Myalgia, unspecified site; Z20.822 Contact with and (suspected) exposure to COVID-19; I10 Essential (primary) hypertension; K21.9 Gastro-esophageal reflux disease without esophagitis; J45.909 Unspecified asthma, uncomplicated; F17.210 Nicotine dependence, cigarettes, uncomplicated; Z79.899 Other long term (current) drug therapy
CPT/HCPCS: 36415; 71045; 80053; 84484; 85025; 87635; 87804; 93005; 96374; 96375; J1885; J2270; U0003; U0005

== ENCOUNTER 2020-12-05 15:58 | Emergency (ER) | payer OTHER ==
[~2020-12-05 15:58] MED LIST changes: -ISOVUE-370 76%-LOCM 1 ML ONE; +Iopamidol-370 76% 500 ML 1 ML ONE
[2020-12-05 16:56] LABS: #Basophils 0.1 thou/uL (0.0-0.2); #Eosinphils 0.1 thou/uL (0.0-0.7); #Lymphocytes 2.7 thou/uL (1.20-3.40); #Monocytes 0.5 thou/uL (0.11-0.59); %Basophils 0.5 % (0.0-1.0); %Eosinophils 0.9 % (0.0-10.0); %Lymphocytes 25.9 % (21.0-51.0); %Monocytes 5.2 % (0.0-10.0); %Neutrophils 67.4 % (42.0-75.0); Hemoglobin 16.5 g/dL (12.0-16.0); Mean Corpuscular HGB CONC 33.7 g/dL (32.0-36.0); Mean Corpuscular Hemoglobin 30.2 pg (27.0-31.0); Mean Corpuscular Volume 89.6 fL (78.0-98.0); Mean Platelet Volume 6.9 fL (7.4-10.4); Platelet Count 337 thou/uL (130-400); RBC Distribution Width 12.9 % (11.5-14.5); Red Blood Cell (RBC) Count 5.44 mill/uL (4.20-5.40); White Blood Cell (WBC) Count 10.3 thou/uL (4.8-10.8)
[2020-12-05 17:08] LABS: Bilirubin Negative (Negative); Blood, Urine Negative (Negative); Clarity Clear (Clear); Glucose, Urine (Dipstick) Normal (Negative); Ketone, Urine Negative (Negative); Leukocyte Negative Leu/uL (Negative); Nitrite Negative (Negative); Protein, Urine (Dipstick) 10 mg/dL (Neg-Trace); Specific Gravity, Urine 1.024 (1.002-1.036); Urobilinogen Normal mg/dL (Less than 2)
[2020-12-05 17:21] LABS: ALT (SGPT) 15 U/L (8-55); AST (SGOT) 15 U/L (5-34); Albumin 4.4 g/dL (3.5-5.0); Alkaline Phosphatase 117 U/L (40-110); Anion Gap 11 mmol/L (10-20); BUN (Urea Nitrogen) 15 mg/dL (7.0-18.7); Bilirubin, Total 0.5 mg/dL (0.2-1.2); Calc. Creatinine Clearance 0 mL/min (70-130); Calcium 11.5 mg/dL (7.8-10.44); Carbon Dioxide 26 mmol/L (22-29); Chloride 107 mmol/L (98-107); Globulin 3.1 g/dL (2.4-3.5); Glucose 89 mg/dL (70-105); Lipase 32 U/L (8-78); Protein, Total 7.5 g/dL (6.0-8.3); Sodium 140 mmol/L (136-145)
== END 2020-12-05 19:00 | disposition home or self-care (01) ==
LOC: ERS 15:58
DX: R10.13 Epigastric pain (principal); R11.2 Nausea with vomiting, unspecified; R19.7 Diarrhea, unspecified; I10 Essential (primary) hypertension; F17.210 Nicotine dependence, cigarettes, uncomplicated; Z79.899 Other long term (current) drug therapy
CPT/HCPCS: 36415; 74177; 80053; 81003; 83690; 85025; 93005; Q9967

== ENCOUNTER 2023-10-02 17:20 | Emergency (ER) | payer OTHER ==
[2023-10-02 18:27] LABS: #Eosinphils 0.1 thou/uL (0.0-0.7); #Monocytes 0.5 thou/uL (0.11-0.59); #Neutrophils 4.5 thou/uL (1.40-6.50); %Basophils 0.6 % (0.0-1.0); %Eosinophils 1.1 % (0.0-10.0); %Lymphocytes 29.6 % (21.0-51.0); %Monocytes 6.6 % (0.0-10.0); %Neutrophils 61.8 % (42.0-75.0); Hematocrit 46.9 % (36.0-47.0); Hemoglobin 16.3 g/dL (12.0-16.0); Mean Corpuscular HGB CONC 34.8 g/dL (32.0-36.0); Mean Corpuscular Hemoglobin 29.7 pg (27.0-31.0); Mean Corpuscular Volume 85.6 fl (78.0-98.0); Mean Platelet Volume 9.2 fL (7.4-10.4); Platelet Count 266 10x3/uL (130-400); RBC Distribution Width 13.3 % (11.5-14.5); Red Blood Cell (RBC) Count 5.48 mill/uL (4.20-5.40); White Blood Cell (WBC) Count 7.3 10x3/uL (4.8-10.8)
[2023-10-02] MEDS ORDERED: Acetaminophen 325 MG TAB ONE (18:43)
[2023-10-02] MEDS ORDERED: Amlodipine 5 MG TAB ONE (18:43)
[2023-10-02 19:01] LABS: ALT (SGPT) 10 U/L (8-55); AST (SGOT) 13 U/L (5-34); Albumin 4.3 g/dL (3.5-5.0); Alkaline Phosphatase 120 U/L (40-110); Anion Gap 10 mmol/L (10-20); BUN (Urea Nitrogen) 14 mg/dL (9.8-20.1); Bilirubin, Total 0.5 mg/dL (0.2-1.2); Calc. Creatinine Clearance 0 mL/min (70-130); Calcium 11.5 mg/dL (7.8-10.44); Carbon Dioxide 26 mmol/L (22-29); Chloride 111 mmol/L (98-107); Estimated GFR 85; Globulin 2.2 g/dL (2.4-3.5); Glucose 103 mg/dL (70-105); Potassium 3.8 mmol/L (3.5-5.1); Protein, Total 6.5 g/dL (6.0-8.3); Sodium 143 mmol/L (136-145)
[2023-10-02 19:07] LABS: Troponin I Less than 0.010 ng/mL (< 0.028)
== END 2023-10-02 19:33 | disposition home or self-care (01) ==
LOC: ERS 17:20
DX: S09.90XA Unspecified injury of head, initial encounter (principal); S00.03XA Contusion of scalp, initial encounter; R01.1 Cardiac murmur, unspecified; I10 Essential (primary) hypertension; F17.210 Nicotine dependence, cigarettes, uncomplicated; W22.8XXA Striking against or struck by other objects, initial encounter; Z79.899 Other long term (current) drug therapy
CPT/HCPCS: 36415; 70450; 71045; 80053; 83880; 84484; 85025; 93005

== ENCOUNTER 2024-09-05 22:40 | Emergency (ER) | payer OTHER ==
[~2024-09-05 22:40] MED LIST changes: -Iopamidol-370 76% 500 ML 1 ML ONE; +Iopamidol-370 76% 500 ML MDV (1 ML CHARGE) ONE
[2024-09-05] MEDS ORDERED: Morphine 4 MG/ML VIAL ONE (23:20)
[2024-09-05] MEDS ORDERED: Ketorolac Tromethamine 30 MG (1 mL) VIAL ONE (23:20)
[2024-09-05] MEDS ORDERED: Ondansetron PF 4 MG/2 ML Vial ONE (23:20)
[2024-09-05] MEDS ORDERED: Dexamethasone 10 MG/ML VIAL ONE (23:21)
[2024-09-05 23:48] LABS: #Basophils 0.07 10x3/uL (0.0-0.2); %Basophils 0.9 % (0.0-1.0); %Eosinophils 1.4 % (0.0-10.0); %Lymphocytes 33.6 % (21.0-51.0); %Monocytes 10.7 % (0.0-10.0); %Neutrophils 52.9 % (42.0-75.0); Hematocrit 42.2 % (36.0-47.0); Hemoglobin 14.6 g/dL (12.0-16.0); Mean Corpuscular HGB CONC 34.6 g/dL (32.0-36.0); Mean Corpuscular Hemoglobin 28.9 pg (27.0-31.0); Mean Corpuscular Volume 83.6 fL (78.0-98.0); Platelet Count 276 10x3/uL (130-400); RBC Distribution Width 13.5 % (11.5-14.5); Red Blood Cell (RBC) Count 5.05 mill/uL (4.20-5.40)
[2024-09-06 00:04] LABS: ALT (SGPT) 23 U/L (8-55); AST (SGOT) 19 U/L (5-34); Albumin 4.1 g/dL (3.5-5.0); Alkaline Phosphatase 112 U/L (40-110); Anion Gap 12 mmol/L (10-20); BUN (Urea Nitrogen) 15 mg/dL (9.8-20.1); Bilirubin, Total 0.3 mg/dL (0.2-1.2); Calc. Creatinine Clearance 0 mL/min (70-130); Calcium 11.7 mg/dL (7.8-10.44); Carbon Dioxide 24 mmol/L (22-29); Chloride 106 mmol/L (98-107); Estimated GFR 105; Globulin 3.5 g/dL (2.4-3.5); Glucose 98 mg/dL (70-105); Potassium 3.9 mmol/L (3.5-5.1); Protein, Total 7.6 g/dL (6.0-8.3); Sodium 138 mmol/L (136-145)
== END 2024-09-06 01:52 | disposition home or self-care (01) ==
LOC: ERS 22:40
DX: J02.9 Acute pharyngitis, unspecified (principal); I10 Essential (primary) hypertension; F17.210 Nicotine dependence, cigarettes, uncomplicated
CPT/HCPCS: 36415; 70491; 80053; 83605; 85025; 87081; 87428; 87430; 96374; 96375; J1100; J1885; J2270; J2405

== ENCOUNTER 2024-09-14 14:01 | Emergency (ER) | payer OTHER ==
[2024-09-14 14:35] LABS: #Basophils 0.03 10x3/uL (0.0-0.2); %Basophils 0.5 % (0.0-1.0); %Eosinophils 0.9 % (0.0-10.0); %Lymphocytes 28.6 % (21.0-51.0); %Monocytes 11.5 % (0.0-10.0); Hematocrit 42.8 % (36.0-47.0); Hemoglobin 15.1 g/dL (12.0-16.0); Mean Corpuscular HGB CONC 35.3 g/dL (32.0-36.0); Mean Corpuscular Hemoglobin 29.4 pg (27.0-31.0); Mean Corpuscular Volume 83.3 fL (78.0-98.0); Platelet Count 221 10x3/uL (130-400); RBC Distribution Width 13.6 % (11.5-14.5); Red Blood Cell (RBC) Count 5.14 mill/uL (4.20-5.40)
[2024-09-14 14:51] LABS: ALT (SGPT) 42 U/L (Less than 34); AST (SGOT) 32 U/L (11-34); Albumin 3.7 g/dL (3.1-4.5); Alkaline Phosphatase 95 U/L (40-110); Anion Gap 10 mmol/L (10-20); BUN (Urea Nitrogen) 12 mg/dL (9.8-20.1); Bilirubin, Total 0.2 mg/dL (0.3-1.2); Calc. Creatinine Clearance 0 mL/min (70-130); Calcium 11.3 mg/dL (7.8-10.44); Carbon Dioxide 26 mmol/L (22-29); Chloride 105 mmol/L (98-107); Estimated GFR 106; Globulin 3.5 g/dL (2.4-3.5); Glucose 123 mg/dL (70-105); Potassium 3.5 mmol/L (3.5-5.1); Protein, Total 7.2 g/dL (6.0-8.3); Sodium 137 mmol/L (136-145)
[2024-09-14 14:55] LABS: Troponin I Less than 0.010 ng/mL (< 0.028)
[2024-09-14 14:58] LABS: Bilirubin Negative (Negative); Blood, Urine Negative (Negative); CAUTI Indications for Culture Fever or rigors; Clarity Clear (Clear); Glucose, Urine (Dipstick) Normal (Negative); Ketone, Urine Negative (Negative); Leukocyte Negative Leu/uL (Negative); Nitrite Negative (Negative); Protein, Urine (Dipstick) Negative (Neg-Trace); RBC/HPF 0-3 HPF (0-3); Specific Gravity, Urine 1.012 (1.002-1.036); Squamous Epithelial 0-3 HPF (0-3); Urobilinogen Normal mg/dL (Less than 2); WBC/HPF 0-3 HPF (0-3); pH, Urine 6.5 (5.0-9.0)
[2024-09-14 15:04] LABS: Bacteria/HPF 1+ HPF (None Seen)
[2024-09-14 15:05] LABS: Urine Culture Reflex No No
[2024-09-14] MEDS ORDERED: Acetaminophen 500 MG TAB ONE (15:13)
[2024-09-14] MEDS ORDERED: Ketorolac Tromethamine 30 MG (1 mL) VIAL ONE (15:13)
== END 2024-09-14 16:05 | disposition home or self-care (01) ==
LOC: ERS 14:01
DX: R07.2 Precordial pain (principal); R05.9 Cough, unspecified; I10 Essential (primary) hypertension; F17.210 Nicotine dependence, cigarettes, uncomplicated
CPT/HCPCS: 71045; 80053; 81001; 84484; 85025; 87428; 93005; 94760; 96374; J1885

== ENCOUNTER 2025-04-01 14:53 | Emergency (ER) | payer MEDICAID ==
[2025-04-01 15:59] LABS: #Basophils 0.07 10x3/uL (0.0-0.2); #Eosinophils 0.13 10x3/uL (0.0-0.7); #Monocytes 0.69 10x3/uL (0.11-0.59); #Neutrophils 5.12 10x3/uL (1.40-6.50); %Basophils 0.9 % (0.0-1.0); %Eosinophils 1.6 % (0.0-10.0); %Lymphocytes 24.2 % (21.0-51.0); %Monocytes 8.7 % (0.0-10.0); %Neutrophils 64.3 % (42.0-75.0); Hematocrit 43.6 % (36.0-47.0); Hemoglobin 15.0 g/dL (12.0-16.0); Mean Corpuscular Hemoglobin 28.7 pg (27.0-31.0); Mean Corpuscular Volume 83.5 fL (78.0-98.0); Platelet Count 291 10x3/uL (130-400); Red Blood Cell (RBC) Count 5.22 mill/uL (4.20-5.40); White Blood Cell (WBC) Count 7.96 10x3/uL (4.8-10.8)
[2025-04-01 16:16] LABS: ALT (SGPT) 87 U/L (Less than 34); AST (SGOT) 137 U/L (11-34); Albumin 4.4 g/dL (3.1-4.5); Alkaline Phosphatase 104 U/L (40-110); Anion Gap 13 mmol/L (10-20); BUN (Urea Nitrogen) 10 mg/dL (9.8-20.1); Bilirubin, Total 0.5 mg/dL (0.3-1.2); Calc. Creatinine Clearance 0 mL/min (70-130); Calcium 12.2 mg/dL (7.8-10.44); Carbon Dioxide 24 mmol/L (22-29); Chloride 103 mmol/L (98-107); Globulin 3.1 g/dL (2.4-3.5); Glucose 122 mg/dL (70-105); Magnesium 1.7 mg/dL (1.6-2.6); Potassium 3.4 mmol/L (3.5-5.1); Sodium 137 mmol/L (136-145)
[2025-04-01 18:24] LABS: Bacteria/HPF None Seen HPF (None Seen); CAUTI Indications for Culture Alt mental st,lethar; Glucose, Urine (Dipstick) Normal (Negative); Leukocyte Negative Leu/uL (Negative); Protein, Urine (Dipstick) Negative (Neg-Trace); RBC/HPF 0-3 HPF (0-3); Specific Gravity, Urine 1.009 (1.002-1.036); WBC/HPF 0-3 HPF (0-3)
[2025-04-01 18:29] LABS: Urine Culture Reflex No No
== END 2025-04-01 19:47 | disposition home or self-care (01) ==
LOC: ERS 14:53
DX: R53.1 Weakness (principal); I10 Essential (primary) hypertension; J44.9 Chronic obstructive pulmonary disease, unspecified; F17.290 Nicotine dependence, other tobacco product, uncomplicated; Z79.899 Other long term (current) drug therapy
CPT/HCPCS: 80053; 81001; 83735; 85025; 93005; 99285

== ENCOUNTER 2025-07-07 09:26 | Emergency (ER) | payer MEDICAID ==
[2025-07-07 10:09] LABS: #Basophils 0.04 10x3/uL (0.0-0.2); #Eosinophils 0.05 10x3/uL (0.0-0.7); #Monocytes 0.61 10x3/uL (0.11-0.59); #Neutrophils 5.80 10x3/uL (1.40-6.50); %Basophils 0.5 % (0.0-1.0); %Eosinophils 0.6 % (0.0-10.0); %Lymphocytes 21.9 % (21.0-51.0); %Monocytes 7.3 % (0.0-10.0); %Neutrophils 69.5 % (42.0-75.0); Hematocrit 44.6 % (36.0-47.0); Hemoglobin 15.0 g/dL (12.0-16.0); Mean Corpuscular Hemoglobin 28.7 pg (27.0-31.0); Mean Corpuscular Volume 85.3 fL (78.0-98.0); Platelet Count 266 10x3/uL (130-400); Red Blood Cell (RBC) Count 5.23 mill/uL (4.20-5.40); White Blood Cell (WBC) Count 8.35 10x3/uL (4.8-10.8)
[2025-07-07 10:23] LABS: ALT (SGPT) 94 U/L (Less than 34); AST (SGOT) 140 U/L (11-34); Albumin 4.2 g/dL (3.1-4.5); Alkaline Phosphatase 96 U/L (40-110); Anion Gap 13 mmol/L (10-20); BUN (Urea Nitrogen) 12 mg/dL (9.8-20.1); Bilirubin, Total 0.4 mg/dL (0.3-1.2); Calc. Creatinine Clearance 0 mL/min (70-130); Calcium 12.4 mg/dL (7.8-10.44); Carbon Dioxide 24 mmol/L (22-29); Chloride 107 mmol/L (98-107); Globulin 2.8 g/dL (2.4-3.5); Glucose 123 mg/dL (70-105); Potassium 3.4 mmol/L (3.5-5.1); Sodium 141 mmol/L (136-145)
== END 2025-07-07 13:59 | disposition home or self-care (01) ==
LOC: ERS 09:26
DX: R07.9 Chest pain, unspecified (principal); F43.0 Acute stress reaction; J44.9 Chronic obstructive pulmonary disease, unspecified; F17.210 Nicotine dependence, cigarettes, uncomplicated
CPT/HCPCS: 71045; 80053; 84484; 85025; 93005; Q0162